=== PATIENT | male | born 1975 | race Caucasian/White ===

== ENCOUNTER 2019-07-25 11:18 | Emergency (ER) | payer OTHER ==
[~2019-07-25] VITALS: Ht 185.4 cm; Wt 120.2 kg
[2019-07-25 13:24] LABS: ABSOLUTE NEUTROPHILS 6.4 thou/uL (1.4-8.2); BASOPHILS 0.9 % (0.0-2.0); EOSINOPHILS 2.7 % (0.0-3.0); HEMATOCRIT 49.3 % (42.0-52.0); HEMOGLOBIN 16.7 gm/dL (14.0-18.0); LYMPHOCYTES 20.2 % (24.0-44.0); MCH 30.7 pg (26.0-34.0); MCHC 33.8 g/dL (28.0-37.0); MONOCYTES 5.8 % (1.0-8.0); PLATELET COUNT 264 thou/uL (150-400); POLYS 70.4 % (36.0-66.0); RBC 5.42 mil/uL (4.50-6.00); RDW 13.8 % (10.5-14.5)
[2019-07-25 13:38] LABS: PROTIME 10.2 Seconds (9.3-11.4)
[2019-07-25 14:12] VITALS: BP 122/79
--- NOTE | 2019-07-27 17:08 | PATH ---
[facility] [place] [address] PATHOLOGY RPT PROCEDURE Name: ADEOLAPAT Room #: DEP SARAH Dean#: [id number] Admission: 07/25/19 Date of : 73 Discharge: 07/25/19 Report #: [id number] Path Case #: [id number] [facility] Accession Number: [id number] . 01 Material submitted: . PART A: esophagus - BIOPSY DISTAL ESOPHAGEAL MASS. Modifiers: distal PART B: esophagus - BIOPSY RANDOM ESPHAGUS R/O EOE . 01 Clinical history: . A. Food impaction B. Rule out EOE . 02 Diagnosis: A. 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 - Moderate acute and chronic inflammation along with reactive hyperplasia. - Negative for dysplasia or malignancy. - Focal squamous mucosa as well as skeletal muscle present showing reactive changes. . B. Squamous mucosa, random esophagus to rule out eosinophilic esophagitis, endoscopic biopsy: - Mild to moderate esophagitis with increased intraepithelial eosinophils up to 35/hpf (please see comment). - Negative for intestinal metaplasia or dysplasia. . (IUV:assistant professor of life sciences; 07/27/2019) R 07/27/2019 1510 Local . 02 Comment: A. The above diagnosis of Mo's esophagus is made due to presence of intestinal metaplasia and with the assumption that the biopsies were obtained from the columnar mucosa in the distal esophagus located at least 1 cm proximal to the top of the gastric folds as per the 2016 ACG guidelines. . B. Examination of the esophageal biopsy tissue shows squamous mucosa with a marked number of intraepithelial eosinophils. Although eosinophils are commonly encountered in inflammation due to reflux esophagitis, the eosinophils in the present specimen are numerous, exceeding 35/hpf. Apart from reflux esophagitis, potential etiologies for the histologic pattern include allergic and collagen vascular diseases, fungal or parasitic infections, and eosinophilic esophagitis (idiopathic). Please correlate with clinical and endoscopic findings. . (IUV:assistant professor of life sciences; 07/27/2019) [address] [address] PATHOLOGY RPT PROCEDURE Name: PAT MIR Room #: DEP SARAH Dean#: [id number] Admission: 07/25/19 Date of : 73 Discharge: 07/25/19 Report #: [id number] Path Case #: [id number] . 02 Electronically signed: . Darlyn Savage MD, Pathologist NPI- [id number] . 01 Gross description: . A. The specimen is received in formalin, labeled "Adeola, Pat, BX distal esophageal mass" and consists of 3 fragments of pink-washburn tissue measuring between 0.2 x 0.2 cm and 0.4 x 0.3 cm which are entirely submitted in A1. . B. The specimen is received in formalin, labeled "Adeola, Pat, BX random esophagus" and consists of 3 fragments of pink-washburn tissue measuring 0.3 x 0.2 cm and 0.3 x 0.3 cm which are entirely submitted in B1. (SDY; 07/26/2019) SYU/SYU 07/26/2019 1323 Local . 02 Pathologist provided ICD-10: K22.70, K20.9 . 02 CPT . 690746, 804869 Specimen Comment: A courtesy copy of this report has been sent to [phone], [phone] Specimen Comment: [id number] Specimen Comment: Report sent to / DR DESOUZA Performed at: [address] [facility], [place], [place] [id number] MD Jose Elias Saha MD Phone: [phone] Performed at: [address] [id number] MD Darlyn Savage MD Phone: [phone]
== END 2019-07-25 14:10 | disposition still patient (30) ==
LOC: ER 11:18
PROVIDERS: Physician Assistant
DX: T18.128A Food in esophagus causing other injury, initial encounter (principal); Z91.018 Allergy to other foods; Z88.0 Allergy status to penicillin; Y92.89 Other specified places as the place of occurrence of the external cause
CPT/HCPCS: 62110; 62900